=== PATIENT | female | born 1990 | race Caucasian/White ===

== ENCOUNTER 2023-12-18 12:25 | Emergency (ER) | payer MEDICARE, SELFPAY ==
[2023-12-18 12:29] VITALS: BP 125/83
--- NOTE | 2023-12-18 12:57 | ED.GENMED ---
History of Present Illness
General
Chief Complaint: Crisis Evaluation
Time Seen by Provider: 12/18/23 12:56
Travel History
Have you had any contact with someone who has COVID-19?: No
Do you have any symptoms of coronavirus? Fever > 100 degrees, chills, cough, shortness of breath, sore throat, loss of taste or smell, muscle aches, or headache?: No
History of Present Illness
History of Present Illness:
HPI: Patient presents after petition for 302 by [facility]. The patient tells me that 'my brain cannot rest, sometimes I listen to the music to help my brain rest'. The patient states she uses alcohol on a daily basis to help and she currently
request Adderall. She adamantly denies suicidal ideation.
EXAM:
GENERAL: Well appearing in no distress
HEENT: Moist oral mucosa
CARDIOVASCULAR: No murmurs, normal heart rate and rhythm, No chest wall tenderness
PULMONARY: No respiratory distress, breath sounds are clear and equal
ABDOMEN: Soft with no peritoneal signs, no tenderness
NEUROLOGIC: Excellent strength all extremities, no coordination deficits
PSYCHIATRIC: Reasonable mental status, fair insight and judgement
EXTREMITIES: Nontender, no edema, moves all extremities equally
SKIN: No rash, no lesions
ED COURSE:
1 PM: I initially evaluated patient to crisis from
NUMBER AND COMPLEXITY OF PROBLEMS ADDRESSED AT THE ENCOUNTER
� Chronic conditions affecting care: Bulimia, anxiety/depression, schizophrenia, migraine
� Acute Exacerbation and/or Progression of Chronic Illness: The patient has had a similar presentation in the past
� Differential Diagnosis includes: Psychosis, ADHD, anxiety depression, schizophrenia
AMOUNT AND/OR COMPLEXITY OF DATA TO BE REVIEWED AND ANALYZED
� I performed an independent evaluation of and my interpretation is:
EKG:
CT:
X-rays:
Laboratory Studies: Not indicated
Other:
� Review of other/old records: The patient was here couple weeks ago with alcohol intoxication and also had an alcohol-related visit in September of last year. The patient was seen here in [facility] and at that time also for 302.
At that time, psychiatry note indicated the patient was disorganized and psychotic and at that time made several phone calls to the police about her cat, but ultimately the patient was recommended outpatient treatment.
� Clinical information was obtained by an independent historian: As above
� Prescriptions/Medications Considered but not given:
� Further testing considered but not performed:
RISK OF COMPLICATIONS AND/OR MORBIDITY OR MORTALITY OF PATIENT MANAGEMENT
� Social determinants of health affecting care:
� Discussion with other providers: I spoke to [facility] at 1:05 PM. They tell me that mobile crisis became involved as the patient reportedly was slamming doors at her apartment and police were called. Currently, awaiting
evaluation from psychiatrist.
� Escalation of care including admission/observation vs risk of discharge considered: At 1:20 PM, [facility] tells me the psychiatry did evaluate the patient and feel she is stable for discharge. [facility] feels that she is at her
baseline. The patient denies any suicidal ideation to me. She is in no psychiatric distress. Apparently, police will take her back to her apartment.
Past History
Past History
ED Past Medical History: Psychiatric (Bipolar disorder, bulimia, anxiety, depression, borderline personality disorder, schizophrenia)
ED Past Surgical History: Other (Dental)
Social History
Tobacco: Vaping
Alcohol: None
Drug: None
Personal: Single
Living: with family
Family History
Family History: Negative Diabetes, Hypertension or CAD
Phy Exam
Physical Exam
Physical Exam:
See HPI
Course
Vital Signs
Initial and Last Documented VS:
Initial Vital Signs
Temp Pulse Resp BP Pulse Ox
98.1 F 95 18 125/83 98
12/18/23 12:29 12/18/23 12:29 12/18/23 12:29 12/18/23 12:29 12/18/23 12:29
Last Documented Vital Signs
Temp Pulse Resp BP Pulse Ox
98.1 F 95 18 125/83 98
12/18/23 12:29 12/18/23 12:29 12/18/23 12:29 12/18/23 12:29 12/18/23 12:29
*Critical Care Note
Total Time (30-74mins, 75-104mins- exclusive of procedures): Not Applicable
ED Attending Note
-
Portions of this chart may have been created with voice recognition software.� Occasional wrong word or��sound alike� substitutions may have occurred due to the inherent limitations of voice recognition software.
Discharge Plan
Departure
Patient Disposition: Home (Routine Discharge)
Date of Disposition: 12/18/23
Time of Disposition: 13:19
Patient with high blood pressure during this ER visit?: Yes
Discharge Problem:
Schizophrenia, chronic condition
Instructions: Anxiety, Adult (DC)
Prescriptions:
No Action
hydrocodone-acetaminophen 5-325 mg Tablet
1 tab PO BIDPRN PRN (Reason: severe pain)
Patient Comments:
09/27/23 Filled on 08/23/23 #60
fluphenazine HCl 10 mg Tablet
10 mg PO BID
norethindrone ac-eth estradiol [12/08 ()] 1-20 mg-mcg Tablet
1 tab PO DAILY
Referrals:
UNKNOWN,NO INTERVIEW [Family Provider] -
Activity Restrictions/Additional Instructions:
You were seen by psychiatrist. Return here if worse.
--- NOTE | 2023-12-18 16:27 | W.PN.UPDATE ---
Update Note
Progress Note Update
Pt seen at approx 1:00 pm today for 302 exam. Pt alert, calm, cooperative, presents at previous noted baseline with chronic delusional thought content and c/o voices. Pt c/o people in general, including doctors and therapists 'abuse' her. Pt
denies any suicidal or homicidal ideation. She shows no overt signs of RIS. Pt declines medications, declines voluntary treatment. Pt does not present immediate danger to self of others, either on exam or per 302 allegations. 302 petition
reports pt banging doors, screaming.
Imp: Unspecified psychotic disorder, likely Schizophrenia vs Schizoaffective d/o. 302 not upheld; pt does not present immediate danger to self/others and psychotic symptoms are chronic
Rec: 302 not upheld; refer to outpatient treatment
== END 2023-12-18 14:25 | disposition home or self-care (01) ==
LOC: EMR 12:25
PROVIDERS: EMERGENCY PHYSICIAN Emergency Medicine; OTHER PHYSICIAN Psychiatry & Neurology Psychiatry
DX: F20.9 Schizophrenia, unspecified (principal); F10.90 Alcohol use, unspecified, uncomplicated; R03.0 Elevated blood-pressure reading, without diagnosis of hypertension; F50.2 Bulimia nervosa; F41.9 Anxiety disorder, unspecified; F32.A Depression, unspecified; G43.909 Migraine, unspecified, not intractable, without status migrainosus; F31.9 Bipolar disorder, unspecified; F17.290 Nicotine dependence, other tobacco product, uncomplicated
CPT/HCPCS: 99283

== ENCOUNTER 2024-10-23 09:47 | Emergency (ER) | payer MEDICARE, SELFPAY ==
[2024-10-23 10:02] VITALS: BP 139/85
--- NOTE | 2024-10-23 11:13 | ED.GENMED ---
History of Present Illness
General
Chief Complaint: Cough
Source: patient
Time Seen by Provider: 10/23/24 11:05
History of Present Illness
History of Present Illness:
34-year-old female with past medical history of a chronic cough, anxiety/depressions, schizophrenia, eating disorder presenting the ER for evaluation of cough that has been ongoing for the last few months but seemingly worse yesterday accompanied
with wheezing. Patient denies any fevers, chills, rigors. No known sick contacts, recent travel or recent antibiotics. Patient stating that she believes her cough is likely related to vaping she does
Past History
Past History
ED Past Medical History: Psychiatric (Bipolar disorder, bulimia, anxiety, depression, borderline personality disorder, schizophrenia)
ED Past Surgical History: Other (Dental)
Social History
Tobacco: Vaping
Alcohol: None
Drug: None
Personal: Single
Living: with family
Family History
Family History: Negative Diabetes, Hypertension or CAD
Review of Systems
Review of Systems
All Other Systems: ROS reviewed and negative except as documented in HPI and ROS
Phy Exam
Physical Exam
Physical Exam:
GENERAL: Alert , in no apparent distress
EYE: conjunctiva clear
NECK: Supple, no significant adenopathy.
ENT: o/p clr, mmm.TMs clear bilaterally, no tonsillar edema or exudates, uvula midline, airway patent, no stridor or trismus
CARDIAC: Regular rate and rhythm
LUNGS: Clear breath sounds bilaterally, no acute respiratory distress, no wheezes/rales/rhonchi
NEUROLOGICAL: Alert and oriented
SKIN: Warm and dry, skin intact.
MUSCULOSKELETAL: well perfused.
PSYCH: Normal and appropriate interaction.
Scores
Heart Failure Risk
Heart Failure Risk Score: Not Applicable
Heart Score for Chest Pain Patients
STEMI patient?: Not applicable
Withdrawal Assessment of Alcohol
Withdrawal Assessment Completed?: Not applicable
Course
Orders/Labs/Results
Orders:
Orders
10/23/24 10:08
Chest [CR Chest - 2 Views ] Urgent
Comment:
Reason For Exam: cough
Vital Signs
Initial and Last Documented VS:
Initial Vital Signs
Temp Pulse Resp BP Pulse Ox
98.4 F 78 18 139/85 98
10/23/24 10:02 10/23/24 10:02 10/23/24 10:02 10/23/24 10:02 10/23/24 10:02
Last Documented Vital Signs
Temp Pulse Resp BP Pulse Ox
98.4 F 84 20 129/85 98
10/23/24 10:02 10/23/24 11:26 10/23/24 11:26 10/23/24 11:26 10/23/24 11:26
MDM/Problems Addressed
Differential Diagnosis Includes:
Viral syndrome, pneumonia, asthmatic bronchitis, I do not have concern for pulmonary embolism or any emergent pathologies
MDM/Problems Addressed:
34-year-old female presenting the ER for evaluation of a chronic cough with symptoms ongoing for the last few months but reportedly worse yesterday with wheezing. Patient's lungs are clear here. She is speaking full sentences in no acute
respiratory distress. Pulse ox persistently in the 90s. Chest x-ray ordered and does not show any abnormalities. Patient was counseled on vaping cessation as this would likely help with her coughing. Can follow-up with primary care provider.
Aware of return precautions.
*Radiology
Radiology exam reviewed: preliminary read by ED provider (Normal chest XR)
*Pulse Oximetry
Patient hypoxic: no
*Critical Care Note
Total Time (30-74mins, 75-104mins- exclusive of procedures): Not Applicable
ED Attending Note
-
Portions of this chart may have been created with voice recognition software.� Occasional wrong word or��sound alike� substitutions may have occurred due to the inherent limitations of voice recognition software.
Discharge Plan
Departure
Patient Disposition: Home (Routine Discharge)
Date of Disposition: 10/23/24
Time of Disposition: 11:13
Patient with high blood pressure during this ER visit?: Yes
Discharge Problem:
Cough
Instructions: Cough, Adult (DC)
Prescriptions:
New
albuterol sulfate 90 mcg/actuation HFA aerosol inhaler
2 puff inhalation Q6H PRN (Reason: shortness of breath or wheezing) Qty: 6.7 0RF
No Action
hydrocodone-acetaminophen 5-325 mg Tablet
1 tab PO BIDPRN PRN (Reason: severe pain)
Patient Comments:
09/27/23 Filled on 08/23/23 #60
fluphenazine HCl 10 mg Tablet
10 mg PO BID
norethindrone ac-eth estradiol [12/08 ()] 1-20 mg-mcg Tablet
1 tab PO DAILY
Interventions
Interventions:
*Risk Screen - Suicide Last Done: 10/23/24 10:02
*General Assessment Last Done: 10/23/24 10:02
*Neglect/Abuse Screening Last Done: 10/23/24 11:10
*ED COVID-19 Vaccine History Last Done: 10/23/24 10:02
*Nursing Disposition Last Done: 10/23/24 11:26
ED- Pulmonary Assessment Last Done: 10/23/24 11:10
Discharge Date and Time
Discharge Date/Time: 10/23/24 11:27
Print Language: FAROESE
[2024-10-23 11:26] VITALS: BP 129/85
== END 2024-10-23 11:27 | disposition home or self-care (01) ==
LOC: EMR 09:47
PROVIDERS: EMERGENCY PHYSICIAN Emergency Medicine
DX: R05.9 Cough, unspecified (principal); F17.290 Nicotine dependence, other tobacco product, uncomplicated
CPT/HCPCS: 99283; 71046

== ENCOUNTER 2025-09-16 06:23 | Day surgery (SDC) | payer MEDICARE, SELFPAY | END 2025-09-16 15:07 | disposition home or self-care (01) | LOC: GI 06:23 | PROVIDERS: ATTENDING PHYSICIAN Specialist | DX: K21.00 Gastro-esophageal reflux disease with esophagitis, without bleeding (principal); K22.89 Other specified disease of esophagus; R11.2 Nausea with vomiting, unspecified; R13.10 Dysphagia, unspecified | CPT/HCPCS: 43239; 88305; 88342 ==